=== PATIENT | female | born 1990 | race Caucasian/White ===

== ENCOUNTER 2017-01-30 18:24 | Emergency (ER) | payer MEDICAID ==
[2017-01-30 19:22] LABS: UA SPECIFIC GRAVITY >=1.030 (1.005-1.035); microscopic required? YES; urine erythrocyte TRACE (NEGATIVE)
[2017-01-30 20:06] VITALS: BP 124/86
== END 2017-01-30 20:06 | disposition home or self-care (01) ==
LOC: ED 18:24
PROVIDERS: Emergency Medicine
DX: N76.0 Acute vaginitis (principal)
CPT/HCPCS: 36415; 87491; 87591; J0696

== ENCOUNTER 2017-03-22 15:31 | Inpatient (IN) | payer MEDICAID ==
[~2017-03-22] VITALS: Ht 154.9 cm; Wt 48.0 kg
[2017-03-22 17:08] LABS: BASOPHIL % 0.7 % (0-2); RED CELL DISTRIBUTION WIDTH 14.3 % (11.5-14.5)
[2017-03-22 17:14] LABS: CALCIUM 8.7 mg/dL (8.5-10.1); CARBON DIOXIDE 31.2 mmol/L (21-32); CHLORIDE SERUM 104 mmol/L (98-107); CREATININE SERUM 0.6 mg/dL (0.6-1.0); GFR1 > 60 mL/min; GLUCOSE SERUM 90 mg/dL (74-106); POTASSIUM SERUM 3.4 mmol/L (3.5-5.1); SODIUM SERUM 140 mmol/L (136-145)
[2017-03-22 17:16] LABS: PLATELET COUNT 2 x10^3mcL (130-400)
[2017-03-22 17:28] LABS: ALBUMIN 3.9 g/dL (3.4-5.0); ALKALINE PHOSPHATASE 89 U/L (46-116); ALT/SGPT 20 U/L (14-59); AST/SGOT 20 U/L (15-37); BILIRUBIN TOTAL 1.5 mg/dL (0.20-1.00); TOTAL PROTEIN, SERUM 7.6 g/dL (6.4-8.2)
[2017-03-22 18:31] LABS: T3 TOTAL 0.72 ng/mL
[2017-03-22 18:44] LABS: FREE T4 0.84 ng/dL (0.76-1.46); FREE THYROXINE INDEX 2.6 ug/dL (1.4-4.5); T4(THYROXINE) 7.5 ug/dL (4.7-13.3)
[2017-03-22 18:49] VITALS: BP 103/71
[2017-03-22 19:05] LABS: MAGNESIUM 1.8 mg/dL (1.8-2.4); PHOSPHOROUS 4.5 mg/dL (2.5-4.9)
[2017-03-22 19:06] LABS: CHOLESTEROL/HDL RATIO 2.4
[2017-03-22 19:12] LABS: AMPHETAMINE QUAL UR POSITIVE (NEG <=1000)
[2017-03-22 19:13] LABS: UA SPECIFIC GRAVITY 1.025 (1.005-1.035); microscopic required? YES; urine erythrocyte TRACE (NEGATIVE)
[2017-03-22 21:21] LABS: RED BLOOD CELLS 3.8 M/mm3 (4.10-5.10)
[2017-03-22 21:23] LABS: IRON 90 ug/dL (50-170); TOTAL IRON BINDING CAPACITY 309 ug/dL (250-450)
[2017-03-22 21:33] VITALS: BP 104/73
[2017-03-22 22:00] VITALS: BP 97/61
[2017-03-22 22:30] VITALS: BP 96/59
[2017-03-22 23:45] VITALS: BP 96/59
[2017-03-23 01:01] LABS: BASOPHIL % 0.4 % (0-2)
[2017-03-23 01:12] LABS: PLATELET COUNT 9 x10^3mcL (130-400)
[2017-03-23 05:42] VITALS: BP 96/61
[2017-03-23 06:25] LABS: CALCIUM 8.3 mg/dL (8.5-10.1); CARBON DIOXIDE 28.3 mmol/L (21-32); CHLORIDE SERUM 110 mmol/L (98-107); CREATININE SERUM 0.8 mg/dL (0.6-1.0); GFR1 > 60 mL/min; GLUCOSE SERUM 94 mg/dL (74-106); MAGNESIUM 1.8 mg/dL (1.8-2.4); PHOSPHOROUS 4.3 mg/dL (2.5-4.9); SODIUM SERUM 143 mmol/L (136-145)
[2017-03-23 07:20] VITALS: Ht 154.9 cm; Wt 48.0 kg
[2017-03-23 07:47] VITALS: BP 106/64
[2017-03-23 07:52] LABS: BASOPHIL % 0.6 % (0-2); RED CELL DISTRIBUTION WIDTH 14.3 % (11.5-14.5)
[2017-03-23 09:01] LABS: PLATELET COUNT 3 x10^3mcL (130-400)
[2017-03-23 11:30] VITALS: BP 126/72
[2017-03-23 15:23] VITALS: BP 102/64
[2017-03-23 18:11] LABS: BASOPHIL % 0.1 % (0-2); RED CELL DISTRIBUTION WIDTH 14.2 % (11.5-14.5)
[2017-03-23 18:30] LABS: PLATELET COUNT 7 x10^3mcL (130-400)
[2017-03-23 20:00] VITALS: BP 100/61
[2017-03-24] VITALS (7 sets, daily range): BP systolic 94–110; BP diastolic 51–71
[2017-03-24 05:42] LABS: CHLORIDE SERUM 106 mmol/L (98-107); CREATININE SERUM 0.7 mg/dL (0.6-1.0); GFR1 > 60 mL/min; GLUCOSE SERUM 137 mg/dL (74-106); MAGNESIUM 1.7 mg/dL (1.8-2.4); PHOSPHOROUS 3.7 mg/dL (2.5-4.9); POTASSIUM SERUM 3.7 mmol/L (3.5-5.1); SODIUM SERUM 140 mmol/L (136-145)
[2017-03-24 06:55] LABS: RED CELL DISTRIBUTION WIDTH 14.1 % (11.5-14.5)
[2017-03-24 06:58] LABS: BASOPHIL % 0 % (0-2); PLATELET COUNT 15 x10^3mcL (130-400)
[2017-03-24 19:55] LABS: RED CELL DISTRIBUTION WIDTH 13.9 % (11.5-14.5)
[2017-03-24 20:02] LABS: BASOPHIL % 0 % (0-2)
[2017-03-24 20:03] LABS: PLATELET COUNT 34 x10^3mcL (130-400)
[2017-03-25 03:13] VITALS: BP 92/45
[2017-03-25 05:34] LABS: RED CELL DISTRIBUTION WIDTH 14.5 % (11.5-14.5)
[2017-03-25 05:38] LABS: CALCIUM 8.7 mg/dL (8.5-10.1); CARBON DIOXIDE 29.1 mmol/L (21-32); CHLORIDE SERUM 105 mmol/L (98-107); CREATININE SERUM 0.6 mg/dL (0.6-1.0); GFR1 > 60 mL/min; GLUCOSE SERUM 105 mg/dL (74-106); MAGNESIUM 1.8 mg/dL (1.8-2.4); PHOSPHOROUS 3.6 mg/dL (2.5-4.9); POTASSIUM SERUM 4.4 mmol/L (3.5-5.1); SODIUM SERUM 140 mmol/L (136-145)
[2017-03-25 06:18] LABS: PLATELET COUNT 41 x10^3mcL (130-400)
[2017-03-25 06:43] LABS: BAND NEUTROPHIL 2 % (0-10); BASOPHIL 0 % (0-2); METAMYELOCTE 1 % (0-2); MONOCYTE 11 % (0-7); MYELOCYTE 1 % (0-2); PLATELET MORPHOLOGY PLATELETS DECREASED; SEGMENTED NEUTROPHILS 75 % (37-75)
[2017-03-25 06:44] LABS: rbc morphology (normal/abnorm) ABNORMAL (NORMAL)
[2017-03-25 08:04] VITALS: BP 91/54
[2017-03-25 12:55] VITALS: BP 95/68
[2017-03-25 17:24] VITALS: BP 110/68
[2017-03-25 21:44] VITALS: BP 100/60; BP 159/81
[2017-03-26 06:09] VITALS: BP 90/57
[2017-03-26 06:24] LABS: BASOPHIL % 0.2 % (0-2); RED CELL DISTRIBUTION WIDTH 14.5 % (11.5-14.5)
[2017-03-26 06:37] LABS: PLATELET COUNT 77 x10^3mcL (130-400)
[2017-03-26 06:44] LABS: CALCIUM 8.8 mg/dL (8.5-10.1); CARBON DIOXIDE 29.7 mmol/L (21-32); CHLORIDE SERUM 102 mmol/L (98-107); CREATININE SERUM 0.6 mg/dL (0.6-1.0); GFR1 > 60 mL/min; GLUCOSE SERUM 84 mg/dL (74-106); MAGNESIUM 1.9 mg/dL (1.8-2.4); PHOSPHOROUS 3.8 mg/dL (2.5-4.9); POTASSIUM SERUM 3.9 mmol/L (3.5-5.1); SODIUM SERUM 138 mmol/L (136-145)
[2017-03-26 07:45] VITALS: BP 101/60
[2017-03-26 09:34] VITALS: BP 108/67
[2017-03-26 14:07] VITALS: BP 115/67
[2017-03-26] MEDS ORDERED: PRE20 PO (14:45)
[2017-03-26] MEDS ORDERED: LAC PO (14:47)
[2017-03-26] MEDS ORDERED: LEVAQUIN750 MG PO (14:47)
[2017-03-26 14:59] VITALS: BP 101/60
== END 2017-03-26 17:12 | disposition home or self-care (01) | DRG 661 ==
LOC: ED 15:31 → IC 17:35 → DU 17:35 → IC 03-23 08:02 → DU 03-25 12:59
PROVIDERS: Emergency Medicine; Family Medicine; ADMIT Family Medicine Sports Medicine
PROC: 30233R1 Transfusion of Nonautologous Platelets into Peripheral Vein, Percutaneous Approach (ICD-10-PCS; principal; 2017-03-22)
DX: D69.6 Thrombocytopenia, unspecified (principal); E44.0 Moderate protein-calorie malnutrition; E83.51 Hypocalcemia; A54.9 Gonococcal infection, unspecified; N39.0 Urinary tract infection, site not specified; S00.12XA Contusion of left eyelid and periocular area, initial encounter; F15.10 Other stimulant abuse, uncomplicated; D64.9 Anemia, unspecified; B96.1 Klebsiella pneumoniae [K. pneumoniae] as the cause of diseases classified elsewhere; S90.02XA Contusion of left ankle, initial encounter; S90.01XA Contusion of right ankle, initial encounter; S50.12XA Contusion of left forearm, initial encounter; S50.11XA Contusion of right forearm, initial encounter; E87.6 Hypokalemia; Q12.0 Congenital cataract; H54.62 Unqualified visual loss, left eye, normal vision right eye; F43.23 Adjustment disorder with mixed anxiety and depressed mood; Z68.1 Body mass index [BMI] 19.9 or less, adult; Z56.0 Unemployment, unspecified; Y04.0XXA Assault by unarmed brawl or fight, initial encounter; Y92.414 Local residential or business street as the place of occurrence of the external cause
CPT/HCPCS: 83880; 84439; 90658; J0696; J1100; J1563; J2405; J7030; J7050; J7512; P9035; Q0092; Q0163

== ENCOUNTER 2017-07-08 20:11 | Emergency (ER) | payer MEDICAID ==
[~2017-07-08] VITALS: Ht 154.9 cm; Wt 45.8 kg
[~2017-07-08 20:11] MED LIST: LAC PO; LEVAQUIN750 MG PO; PRE20 PO
[2017-07-08 20:35] VITALS: Ht 154.9 cm; Wt 45.8 kg
[2017-07-08 21:51] VITALS: BP 116/84
== END 2017-07-08 21:51 | disposition left against medical advice (07) ==
LOC: ED 20:11
DX: Z53.21 Procedure and treatment not carried out due to patient leaving prior to being seen by health care provider (principal)

== ENCOUNTER 2017-08-20 14:25 | Emergency (ER) | payer OTHER ==
[~2017-08-20] VITALS: Ht 154.9 cm; Wt 44.0 kg
[2017-08-20 14:57] VITALS: BP 120/71; Ht 154.9 cm; Wt 44.0 kg
== END 2017-08-20 16:13 | disposition left against medical advice (07) ==
LOC: ED 14:25
DX: Z53.21 Procedure and treatment not carried out due to patient leaving prior to being seen by health care provider (principal)